=== PATIENT | female | born 1930 | race Caucasian/White ===

== ENCOUNTER 2019-08-30 17:44 | Observation (INO) | payer MEDICARE, OTHER ==
[2019-08-30 20:29] LABS: #Lymphocytes 0.5 thou/uL (1.20-3.40); #Monocytes 0.9 thou/uL (0.11-0.59); #Neutrophils 5.4 thou/uL (1.40-6.50); %Basophils 0.6 % (0.0-1.0); %Eosinophils 0.1 % (0.0-10.0); %Lymphocytes 7.8 % (21.0-51.0); %Monocytes 12.7 % (0.0-10.0); Hemoglobin 14.9 g/dL (12.0-16.0); Mean Corpuscular HGB CONC 32.9 g/dL (32.0-36.0); Mean Corpuscular Hemoglobin 28.8 pg (27.0-31.0); Mean Corpuscular Volume 87.6 fL (78.0-98.0); Mean Platelet Volume 8.7 fL (7.4-10.4); Platelet Count 160 thou/uL (130-400); RBC Distribution Width 13.5 % (11.5-14.5); Red Blood Cell (RBC) Count 5.17 mill/uL (4.20-5.40); White Blood Cell (WBC) Count 6.8 thou/uL (4.8-10.8)
[2019-08-30 20:38] LABS: INR-International Normal Ratio 1.4; PTT 32.8 SEC (22.9-36.1); Prothrombin Time 17.2 SEC (12.0-14.7)
[2019-08-30 20:50] LABS: ALT (SGPT) 16 U/L (8-55); AST (SGOT) 17 U/L (5-34); Albumin 3.9 g/dL (3.4-4.8); Alkaline Phosphatase 66 U/L (40-110); Anion Gap 13 mmol/L (10-20); BUN (Urea Nitrogen) 17 mg/dL (9.8-20.1); Bilirubin, Total 1.1 mg/dL (0.2-1.2); Calc. Creatinine Clearance 0 mL/min (70-130); Calcium 9.3 mg/dL (7.8-10.44); Carbon Dioxide 30 mmol/L (23-31); Chloride 98 mmol/L (98-107); Estimated GFR-MDRD 58; Globulin 3.2 g/dL (2.4-3.5); Glucose 190 mg/dL (83-110); Potassium 3.5 mmol/L (3.5-5.1); Protein, Total 7.1 g/dL (6.0-8.3); Sodium 137 mmol/L (136-145)
[2019-08-30 20:51] LABS: Digoxin 0.63 ng/mL (0.8-2.0)
[2019-08-30] MEDS ORDERED: Lorazepam 2 MG/ML VIAL ONE (21:02)
[2019-08-30 21:05] LABS: Bacteria/HPF None Seen HPF (None Seen); Bilirubin Negative (Negative); Blood, Urine Trace (Negative); Clarity Clear (Clear); Glucose, Urine (Dipstick) Normal (Negative); Leukocyte Negative Leu/uL (Negative); Mucous/LPF Rare LPF (<2+); Nitrite Negative (Negative); Protein, Urine (Dipstick) 50 mg/dL (Neg-Trace); Renal Epithelial 0-3 HPF (None Seen); Squamous Epithelial 0-3 HPF (0-3); Transitional Epithelial 0-3 HPF (None Seen); Urobilinogen Normal mg/dL (Less than 2); WBC/HPF 0-3 HPF (0-3)
[2019-08-30] MEDS ORDERED: Diltiazem HCl 125 MG, Admixture Fee 1 EACH in Sodium Chloride 0.9% 100 ML IVPB SCH (21:15)
[2019-08-30 23:44] VITALS: BMI 23.1
--- NOTE | 2019-08-31 04:21 | HP ---
CHIEF COMPLAINT: Left lower extremity weakness. HISTORY OF PRESENT ILLNESS: The patient is an 88-year-old female who was sent from [facility] for evaluation for possible CVA. Apparently, the patient fell in a retirement secondary to weakness. Initially, she was seen in [facility] ED and was sent here for further workup. She did have a CT brain and lower extremity Dopplers which were negative. The patient currently denies any nausea, vomiting, diarrhea, any fevers or chills. She does state that she does have her left lower extremity is normally weak. This has given her problems in the past. The patient most likely has some mild cognitive impairment. She was not really able to answer all my questions and there was no family at the bedside. PAST MEDICAL HISTORY: She has a history of hypertension, AFib, and also apparently CVA. This is per the documentation. She also has a history of dementia. PAST SURGICAL HISTORY: Unclear, the patient is unable to tell me; however, she does appears to be possible knee replacement. SOCIAL HISTORY: She denies any alcohol use, drug use, smoking history. Apparently I will keep her full code. She is unable to tell me exactly what she wants and she also has a history of dementia. ALLERGIES: SHE HAS NO KNOWN DRUG ALLERGIES. MEDICATIONS: 1. Digoxin 125 mcg daily. 2. Donepezil 10 mg daily. 3. Gabapentin 100 mg daily. 4. Meloxicam 7.5 daily. 5. Memantine 10 mg daily. 6. Xarelto 50 mg daily. 7. Valsartan 320 mg daily. PHYSICAL EXAMINATION: VITAL SIGNS: Temperature of 98.8, 96%, respirations are 18, pulse is 99, blood pressure of 160/80. GENERAL: She is awake, alert, and oriented x2. CV: She is irregularly irregular. LUNGS: Clear to auscultation. No rhonchi or wheezes noted. ABDOMEN: Soft and nontender. Bowel sounds are present x2. EXTREMITIES: No edema. Pedal pulses are present x2. NEUROVASCULAR: No focal deficits noted. SKIN: No cuts, lesions, or bruises noted. She does have some mild weakness in her left lower extremity; however, she is able to raise it above the bed and also hold against strength. FAMILY HISTORY: History of heart disease and hypertension. LABORATORY RESULTS: WBC of , hemoglobin 14.9, hematocrit of 45.3, platelets of 160. Chemistry; sodium of 137, potassium of 3.5, BUN of 17, creatinine of 0.92. Her TSH was 2.01. Her urine was pretty benign. Her INR was 1.4. Her digoxin level was 0.63. She did have a CT head at the [facility], which was negative. She also had a lower extremity Doppler, which was negative. She also had a cervical spine CT which did not show any acute abnormalities. ASSESSMENT AND PLAN: The patient is a very pleasant 88-year-old female, who presents to the hospital for possible stroke workup. 1. Possible left lower extremity weakness. This is unclear as the patient states that her left lower extremity has been weak. I will go ahead and get an MRI and an echocardiogram and carotid Dopplers on this patient. When she came into the hospital she was found to be in atrial fibrillation with rapid ventricular response. I will continue her Cardizem drip for now and I will continue her Xarelto. This could be possibly causing her to have the weakness. We will also get an echocardiogram. 2. Atrial fibrillation with rapid ventricular response. We will continue the Xarelto. We will also get an echocardiogram and monitor her. 3. Dementia versus mild cognitive impairment. The patient does have some mild cognitive impairment. She does have a history of dementia. However, there is no family around to clarify that. We will continue to monitor. 4. Hypertension. We will continue her home medications. 5. Deep venous thrombosis prophylaxis. The patient is already on Xarelto. Job ID: [id number]
[2019-08-31 05:27] LABS: Cardiac Risk 2.4 (Less than 4.5)
[2019-08-31] MEDS ORDERED: Donepezil HCl 10 MG TAB PO SCH (09:00)
[2019-08-31] MEDS ORDERED: Digoxin 0.125 MG TAB PO SCH (09:00)
[2019-08-31] MEDS ORDERED: Rivaroxaban 10 MG TAB PO SCH (09:00)
--- NOTE | 2019-08-31 09:57 | ULT ---
BILATERAL CAROTID DUPLEX ULTRASOUND INCLUDING COLOR AND SPECTRAL DOPPLER IMAGING: HISTORY: Stroke. FINDINGS: Minimal thickening and plaque in the distal left calcification. PSV RIGHT ICA: 117 cm per second EDV: 23 cm per second ICA/CCA RATIO: 1.4 PSV LEFT ICA: 85 cm per second EDV: 21 cm per second ICA/CCA RATIO: 1.2 Vertebral flow is antegrade. IMPRESSION: 1. No hemodynamically significant stenosis. 2. Evidence for atherosclerotic carotid vascular disease. POS: TPC
--- NOTE | 2019-08-31 11:23 | MRI ---
MRI BRAIN WITHOUT CONTRAST: HISTORY: Altered mental status with left leg weakness FINDINGS: No restricted diffusion is seen. There are multiple foci of T2 prolongation in the periventricular wh ite matter, consistent with chronic small vessel ischemic disease. The ventricular size is appropriate and the basilar cisterns are patent. 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 No evidence of acute infarct, hemorrhage, midline shift or abnormal extra-axial fluid collections is seen. There is mucosal disease in the paranasal sinuses. IMPRESSION: No evidence of acute intracranial process.
--- NOTE | 2019-08-31 14:42 | PDOC.HOSPP ---
- Subjective Encounter Date: 08/31/19 Encounter Time: 14:40 Subjective: follows directions, no complaints - Objective Vital Signs & Weight: Vital Signs (12 hours) Temp Pulse Resp BP Pulse Ox 08/31/19 12:00 97.4 F L 98 16 144/75 H 92 L 08/31/19 10:28 100 08/31/19 07:57 97.9 F 98 16 154/96 H 93 L 08/31/19 04:00 97.7 F 89 20 142/87 H 95 Weight Admit Weight 143 lb 4.8 oz Weight 143 lb 4.8 oz I&O: 08/30/19 08/31/19 09/01/19 06:59 06:59 06:59 Intake Total 150 Output Total 725 Balance -575 Result Diagrams: 08/30/19 20:21 08/30/19 20:21 Hospitalist ROS - Medication Medications: Active Medications Generic Name Dose Route Start Last Admin Trade Name Freq PRN Reason Stop Dose Admin Digoxin 0.125 mg 08/31/19 09:00 08/31/19 10:28 Lanoxin PO 0.125 mg DAILY ODALYS Administration Diltiazem HCl 30 mg 08/31/19 09:00 08/31/19 10:30 Cardizem PO 30 mg TID ODALYS Administration Donepezil HCl 10 mg 08/31/19 09:00 08/31/19 10:30 Aricept PO 10 mg DAILY ODALYS Administration Memantine 10 mg 08/31/19 09:00 08/31/19 10:30 Namenda PO 10 mg BID ODALYS Administration Rivaroxaban 20 mg 08/31/19 09:00 08/31/19 10:30 Xarelto PO 20 mg DAILY ODALYS Administration - Exam Neck: no JVD Heart: irregular Respiratory: CTAB Gastrointestinal: soft, non-tender, normal bowel sounds Extremities: no edema Neurological: cranial nerve grossly intact, no focal deficits Hosp A/P (1) TIA (transient ischemic attack) Code(s): G45.9 - TRANSIENT CEREBRAL ISCHEMIC ATTACK, UNSPECIFIED Status: Acute (2) Atrial fibrillation with controlled ventricular rate Code(s): I48.91 - UNSPECIFIED ATRIAL FIBRILLATION Status: Chronic (3) Anticoagulant long-term use Code(s): Z79.01 - [place] [facility] (CURRENT) USE OF ANTICOAGULANTS Status: Chronic (4) Dementia Code(s): F03.90 - UNSPECIFIED DEMENTIA WITHOUT BEHAVIORAL DISTURBANCE Status: Chronic Qualifiers: Dementia behavioral disturbance: without behavioral disturbance - Plan CHILDS for CVA neg., neuro exam non-focal cont home meds return to NH
[2019-08-31 15:48] VITALS: BP 137/74; TEMP 98.4
--- NOTE | 2019-08-31 16:35 | DIS ---
DATE OF ADMISSION: 08/30/2019 DATE OF DISCHARGE: 08/31/2019 PRIMARY CARE PROVIDER: Mynor Pastor MD DISCHARGE DISPOSITION: Discharged back to [facility]. DIAGNOSES: 1. Possible transient ischemic attack, resolved. 2. Atrial fibrillation. 3. Dementia. 4. Chronic anticoagulation. DISCHARGE MEDICATIONS: Same as home medicines: 1. Valsartan/hydrochlorothiazide 320/12.5. 2. Mobic 7.5 mg a day. 3. Donepezil 10 mg a day. 4. Digoxin 125 mcg a day. 5. Xarelto 15 mg daily. 6. Memantine 10 mg b.i.d. 7. Gabapentin 800 mg at bedtime. 8. Lipitor 40 mg a day. ALLERGIES: NO KNOWN DRUG ALLERGIES. DIET: Heart healthy. PENDING AT TIME OF DISCHARGE: Nothing. CODE STATUS: Full. HOSPITAL COURSE: The patient was transferred from [facility] to [place] for possible CVA for left leg weakness. Her workup here has been unremarkable including a brain MRI and a carotid Doppler. There is no stroke, no occlusion of internal carotid arteries. CBC was unremarkable. Comprehensive metabolic profile had a mildly elevated blood sugar at 190, otherwise normal. Cholesterol 117, LDL 57, and HDL 49. Neurological exam today is totally normal. She is cooperative. She is being discharged back to [facility] under the care of Dr. Mynor Pastor for followup within 1 week. Job ID: [id number]
[2019-08-31] MEDS ORDERED: Atorvastatin Calcium 40 MG TAB PO SCH (21:00)
[2019-08-31] MEDS ORDERED: Gabapentin 100 MG CAP PO SCH (21:00)
--- NOTE | 2019-09-02 21:23 | EKG ---
Test Reason : Blood Pressure : / mmHG Vent. Rate : 099 BPM Atrial Rate : 094 BPM P-R Int : 000 ms QRS Dur : 138 ms QT Int : 382 ms P-R-T Axes : 000 075 -40 degrees QTc Int : 490 ms Atrial fibrillation Right bundle branch block Abnormal ECG When compared with ECG of 30-AUG-2019 20:06, (Unconfirmed) Current undetermined rhythm precludes rhythm comparison, needs review T wave inversion less evident in Inferior leads Confirmed by Landen AVALOS ([id number]) on 09/02/2019 9:22:41 PM Referred By: ELVIRA Confirmed By:Landen AVALOS
== END 2019-08-31 20:00 ==
LOC: ERS 17:44 → INTOOBSV 23:31 → 2SE 23:31
PROVIDERS: ADMIT Family Medicine; ATTEND Family Medicine
DX: R53.1 Weakness (principal); I10 Essential (primary) hypertension; I48.20 Chronic atrial fibrillation, unspecified; F03.90 Unspecified dementia, unspecified severity, without behavioral disturbance, psychotic disturbance, mood disturbance, and anxiety; Z86.73 Personal history of transient ischemic attack (TIA), and cerebral infarction without residual deficits; Z79.01 Long term (current) use of anticoagulants; Z79.1 Long term (current) use of non-steroidal anti-inflammatories (NSAID); Z79.899 Other long term (current) drug therapy
CPT/HCPCS: 51701; 70551; 80061; 80162; 85610; 85730; 93005 ×2; 93880; 96374; 96375; 97139 ×4; 99285; G0378 ×2; 36415; 80053; 81003; 81015; 84443; 85025; 93010; A4353; J2060; J3490